=== PATIENT | female | born 1985 | race Caucasian/White ===

== ENCOUNTER 2017-12-09 22:59 | Emergency (ER) | payer SELFPAY ==
[2017-12-09] MEDS ORDERED: NORMAL SALINE 1000 ML 1,000 ML IV ONE (23:15)
[2017-12-09] MEDS ORDERED: ONDANSETRON HCL INJ/PF 4 MG/2 ML SDV IV ONE (23:15)
[2017-12-09] MEDS ORDERED: MORPHINE SULFATE 10 MG/ML INJ IV ONE (23:20)
--- NOTE | 2017-12-09 23:39 | ER Document Report ---
ED General - General TRAVEL OUTSIDE OF THE [place] IN LAST 30 DAYS: No <LARISA PANDA - Last Filed: 12/10/17 06:00> <NATALIA DE LA GARZA - Last Filed: 12/10/17 10:29> - General Chief Complaint: Nausea/Vomiting Stated Complaint: VOMITING Time Seen by Provider: 12/09/17 23:15 Notes: Patient is a 32-year-old female who is brought in by her friend due to intractable vomiting and syncope. Patient has stage IV cervical cancer. She moved to the area approximately week ago. She moved here from [place]. She does not have a primary care doctor in the area. Her friend brings a list of prescriptions as well as some generic discharge instructions from [facility]. Patient's friend says that she has basically just been given her vitamins because they do not have her photo ID to be able get her prescriptions filled. Patient apparently has an ex- back in [place]. She has no other family according to the friend. She has no parents. She does not have any siblings. She does have urostomy tubes. She also has colostomy. Patient's oncologist in [place] is Dr. Holcomb. Her BATTERY SERVICE TECHNICIAN physician is Dr. Araujo. They deny recent fevers. Patient says only place she has pain is in her knees. (LARISA PANDA) - Related Data Allergies/Adverse Reactions: No Known Allergies Allergy (Verified 12/09/17 23:50) Past Medical History - Social History Smoking Status: Unknown if Ever Smoked Frequency of alcohol use: None Drug Abuse: None Family History: Reviewed & Not Pertinent <LARISA PANDA - Last Filed: 12/10/17 06:00> Review of Systems <LARISA PANDA - Last Filed: 12/10/17 06:00> <NATALIA DE LA GARZA - Last Filed: 12/10/17 10:29> - Review of Systems Notes: My Normal Review Basic REVIEW OF SYSTEMS: CONSTITUTIONAL : Denies fever, chills, or sweats. Denies recent illness. EENT: Denies eye, ear, throat, or mouth pain or symptoms. Denies nasal or sinus congestion. RESPIRATORY: Denies cough, cold, or chest congestion. Denies shortness of breath, difficulty breathing, or wheezing. GASTROINTESTINAL: Denies abdominal pain. intractable vomiting GENITOURINARY: Denies difficulty urinating, painful urination, burning, frequency, or blood in urine. MUSCULOSKELETAL: Denies neck or back pain or joint pain or swelling. SKIN: Denies rash or skin lesions. NEUROLOGICAL: Syncopal episode. ALL OTHER SYSTEMS REVIEWED AND NEGATIVE. (LARISA PANDA) Physical Exam <LARISA PANDA - Last Filed: 12/10/17 06:00> <NATALIA DE LA GARZA - Last Filed: 12/10/17 10:29> - Vital signs Vitals: Resp Pulse Ox 39 H 81 L 12/09/17 23:13 12/09/17 23:13 - Notes Notes: General Appearance: Thin and cachectic appearing. Patient is somnolent. Vitals: reviewed, See vital signs table. Head: no swelling or tenderness to the head Eyes: PERRL, EOMI, Conjuctiva clear Mouth: Decrease moisture and its membranes. Throat: No tonsillar inflammation, No airway obstruction, No lymphadenopathy Neck: Supple, no neck tenderness, No thyromegaly Lungs: No wheezing, No rales, No rhonci, No accessory muscle use, good air exchange bilaterally. Heart: tachycardiac rate, Regular rythm, No murmur, no rub back: Urostomy tube sites do not have any surrounding redness or erythema or swelling. Bags from urostomy tubes have very small amount of very concentrated appearing urine. Abdomen: Normal BS, soft, No rigidity, No abdominal tenderness, also back left lower quadrant. There is of normal output. No gross blood in colostomy bag. Extremities: strength 5/5 in all extremities, good pulses in all extremities, no swelling or tenderness in the extremities, no edema. Skin: warm, dry, appropriate color, no rash Neuro: speech clear, oriented x 2, normal affect, very weak appearing. global weakness without focal deficit (LARISA PANDA) Course - Laboratory Result Diagrams: 12/09/17 23:26 12/10/17 04:53 <LARISA PANDA - Last Filed: 12/10/17 06:00> - Laboratory Result Diagrams: 12/09/17 23:26 12/10/17 04:53 <NATALIA DE LA GARZA - Last Filed: 12/10/17 10:29> - Re-evaluation Re-evalutation: 03/22/18 23:37 She is hypotensive with systolic blood pressure in the 50s. She is very ill- appearing. After place a central line. We only have one small peripheral IV. They are moving to the trauma bay second place central line and start resuscitative treatment. IV fluids are running through the small IV that we have now. Her history is difficult to fully obtain being that the only medical records that I have for her is a sheet that has her discharge medications and also generic discharge instructions actually did not have any diagnosis on it. I have tried to call the phone number for [facility] to try to get more information. I called the [phone]; however, it gives me a generic message followed by a single ring followed by a dial tone. I have tried this #3 times a day continues to give me the same pattern every time without allow me to speak with anybody. 12/10/17 00:01 She has central veins in both the femoral and internal jugular area are so flat that there almost impossible seed even on ultrasound. I was able to manage to get a 22-gauge IV in her right external jugular. She also has a small 24-gauge in her hand. Having warm IV fluids go through both of these peripheral IVs. We will try to give her some IV fluids so that we are able to see her central veins and then hopefully we will place a central line at that time. IV fluids are running well through these peripheral IVs. 12/10/17 00:19 I finally got touch with [facility]. I spoke with an pilot control operator who told me that medical records disclosed that there is no way they can give me any information on the patient until morning time when those people arrived. 12/10/17 00:23 Patient is feeling improved and her blood pressure is now 96/48. Clinically she looks better. Heart rate still elevated at 138. I will try to get in touch with her oncologist, Dr. Holcomb, and her oncologist Dr. Araujo. 12/10/17 00:29 I was able to get in touch with Dr. Hlocomb's answering service. They connect me with Dr. Gallego. Dr. Gallego says he will look up the patient's information give me a call back. 12/10/17 00:[address] Gallego. He says the patient was diagnosed in October of last year with stage III cervical cancer. She underwent radiation and chemotherapy from November through December. She then missed several of her appointments and came back in April. Since April they have not seen her at their office. 12/10/17 03:[address] Baird, Hospitalist at [facility], who requests I speak with their cook house laborer because of the patient's severe dehydration and metabolic acidosis. 12/10/17 04:38 She did have a very brief episode of hypotension after the NG tube was placed and she had over a liter of brown material suctioned out. This very brief period of hypotension as I resolved the patient's blood pressure is back to 98/ 67. Heart rate has remained the same in the 140s. Clinically the patient continues to look and feel improved. The intensivists said that the patient did not meet cook house laborer criteria because the patient does not require pressors or intubation. Patient still can go to the intensive care unit but was to be expected accepted by the hospitalist. I did speak with Dr. Mares who agrees to accept the patient. She does request that we do get a lactic acid as well as an arterial blood gas as well as repeat chemistry panel. I am awaiting the results of her chest x -ray as well. Patient will be closely monitored until transferred. 12/10/17 04:39 12/10/17 05:15 Patient's friend and roll builder is Kathie. Her phone number is [phone]. ( LARISA PANDA) 12/10/17 06:00 Sign-out from Dr. Panda. 32 yo with extensive cervical cancer and now bowel obstruction. She is accepted for transfer to [facility]. Patient continues to have pain and will try multiple different modalities to help treat her pain due to her hypotension. Fentanyl 50 mcg does not change her pain, ketamine has helped her pain and started a low-dose pain dose drip. Will add Haldol to help with her nausea and pain. Her MAPs are reamining above 65. 12/10/17 09:19 Pt's BP continued to drop to 60/[address] Panda looked with US and her IJs and femoral veins have all collapsed. Relooked with ultrasound and her central veins are still collapsed. Central line would be very difficult to obtain. Patient consented for IO so pressors could be given. 12/10/17 10:35 Norepinephrine drip at 10 with MAP>65. Air transport in ED, patient reassessed. She is in critical condition and explained to patient the severity of her disease/condition. (NATALIA DE LA GARZA) - Vital Signs Vital signs: Temp Pulse Resp BP Pulse Ox 100.9 F H 155 H 39 H 79/56 L 99 12/10/17 09:01 12/10/17 06:26 12/10/17 09:01 12/10/17 09:00 12/10/17 09:01 - Laboratory Laboratory results interpreted by me: 12/09/17 12/09/17 12/10/17 23:26 23:26 00:22 WBC 29.5 H RBC 3.49 L Hgb 10.1 L Hct 31.0 L RDW 16.2 H Plt Count 736 H Seg Neuts % (Manual) 90 H Lymphocytes % (Manual) 6 L Abs Neuts (Manual) 26.6 H Carbonic Acid ABG pH ABG pCO2 ABG pO2 ABG HCO3 ABG Total CO2 ABG O2 Saturation Sodium 125.8 L Chloride 87 L Carbon Dioxide 6 L* Anion Gap 33 H BUN 62 H Creatinine 5.45 H Est GFR ( Amer) 11 L Est GFR (Non-Af Amer) 9 L Glucose 172 H Calcium 7.6 L Phosphorus 7.2 H Direct Bilirubin 0.5 H AST 12 L Alkaline Phosphatase 156 H Total Protein Albumin Urine Protein >=500 H Urine Ketones TRACE H Urine Blood SMALL H Ur Leukocyte Esterase LARGE H 12/10/17 12/10/17 04:53 04:53 WBC RBC Hgb Hct RDW Plt Count Seg Neuts % (Manual) Lymphocytes % (Manual) Abs Neuts (Manual) Carbonic Acid 0.44 L ABG pH 7.33 L ABG pCO2 14.5 L* ABG pO2 145.6 H ABG HCO3 7.5 L ABG Total CO2 7.9 L ABG O2 Saturation 98.8 H Sodium 127.6 L Chloride Carbon Dioxide 7 L* Anion Gap 23 H BUN 59 H Creatinine 4.67 H Est GFR ( Amer) 13 L Est GFR (Non-Af Amer) 11 L Glucose Calcium 6.6 L* Phosphorus Direct Bilirubin AST 12 L Alkaline Phosphatase Total Protein 5.6 L Albumin 3.0 L Urine Protein Urine Ketones Urine Blood Ur Leukocyte Esterase - EKG Interpretation by Me Additional EKG results interpreted by me: 12/10/17 00:11 EKG is reviewed and interpreted by me. EKG shows sinus tachycardia with a rate of [address] segment elevation or depression. There is a lot of baseline artifact making it difficult to interpret if there is any T-wave inversion. MT interval, QRS duration, QTc intervals are within normal range. No old EKG available for comparison. (LARISA PANDA) Procedures - Additional Procedures IO insertion Time performed: 09:15 Additional Procedures: IO insertion <NATALIA DE LA GARZA - Last Filed: 12/10/17 10:29> - Additional Procedures IO insertion Notes: IO inserted into left proximal tibia (NATALIA DE LA GARZA) Critical Care Note - Critical Care Note Total time excluding time spent on procedures (mins): 65 <LARISA PANDA - Last Filed: 12/10/17 06:00> - Critical Care Note Total time excluding time spent on procedures (mins): 65 <NATALIA DE LA GARZA - Last Filed: 12/10/17 10:29> - Critical Care Note Comments: Critical care time for this patient not including time spent on procedures approximately 65 minutes due to frequent re-evaluations, management of hypertension, management of severe acidosis, discussions with physician at transferring facility. (LARISA PANDA) Critical care time for this patient not including time spent on procedures approximately 55 minutes due to frequent re-evaluations, management of hypotension/septic shock and management of severe acidosis. (NATALIA DE LA GARZA) Discharge <LARISA PANDA - Last Filed: 12/10/17 06:00> <NATALIA DE LA GARZA - Last Filed: 12/10/17 10:29> - Discharge Clinical Impression: Small bowel obstruction, Dehydration, Metabolic acidosis, Septic shock UTI (urinary tract infection) Qualifiers: Urinary tract infection type: site unspecified Hematuria presence: without hematuria Qualified Code(s): N39.0 - Urinary tract infection, site not specified Hypothermia Qualifiers: Encounter type: initial encounter Qualified Code(s): T68.XXXA - Hypothermia, initial encounter Vomiting Qualifiers: Vomiting type: unspecified Vomiting Intractability: intractable Nausea presence : with nausea Qualified Code(s): R11.2 - Nausea with vomiting, unspecified Cervical cancer Qualifiers: Malignant neoplasm of cervix location: unspecified location Qualified Code(s): C53.9 - Malignant neoplasm of cervix uteri, unspecified Acute renal failure Qualifiers: Acute renal failure type: unspecified Qualified Code(s): N17.9 - Acute kidney failure, unspecified Condition: Critical [facility]
[2017-12-09 23:47] LABS: HEMOGLOBIN 10.1 g/dL (12.0-15.5); MEAN CORPUSCULAR HEMOGLOBIN 28.9 pg (27.0-33.4); MEAN CORPUSCULAR HGB CONC 32.5 g/dL (32.0-36.0); MEAN CORPUSCULAR VOLUME 89 fl (80-97); PLATELET COUNT 736 10^3/uL (150-450); RED BLOOD COUNT 3.49 10^6/uL (3.72-5.28); RED CELL DISTRIBUTION WIDTH 16.2 % (11.5-14.0); WHITE BLOOD COUNT 29.5 10^3/uL (4.0-10.5)
[2017-12-10 00:01] LABS: ALANINE AMINOTRANSFERASE 16 U/L (9-52); ALBUMIN 4.1 g/dL (3.5-5.0); ALKALINE PHOSPHATASE 156 U/L (38-126); ASPARTATE AMINO TRANSFERASE 12 U/L (14-36); BILIRUBIN,DIRECT 0.5 mg/dL (0.0-0.4); BILIRUBIN,TOTAL 0.7 mg/dL (0.2-1.3); BLOOD UREA NITROGEN 62 mg/dL (7-20); CALCIUM 7.6 mg/dL (8.4-10.2); GLUCOSE 172 mg/dL (75-110); PHOSPHORUS 7.2 mg/dL (2.5-4.5); POTASSIUM 3.6 mmol/L (3.6-5.0); TOTAL PROTEIN 7.1 g/dL (6.3-8.2)
[2017-12-10 00:05] LABS: CHLORIDE 87 mmol/L (98-107); SODIUM 125.8 mmol/L (137-145)
[2017-12-10 00:14] LABS: CARBON DIOXIDE 6 mmol/L (22-30)
[2017-12-10 00:16] LABS: ANION GAP 33 (5-19)
[2017-12-10 00:27] LABS: ABSOLUTE LYMPHOCYTES# (MANUAL) 1.8 10^3/uL (0.5-4.7); ABSOLUTE MONOCYTES # (MANUAL) 1.2 10^3/uL (0.1-1.4); ABSOLUTE NEUTROPHILS# (MANUAL) 26.6 10^3/uL (1.7-8.2); BASOPHILS % (MANUAL) 0 % (0-2); EOSINOPHILS % (MANUAL) 0 % (0-6); LYMPHOCYTES % (MANUAL) 6 % (13-45); MONOCYTES % (MANUAL) 4 % (3-13); SEGMENTED NEUTROPHILS % (MAN) 90 % (42-78); TOTAL CELLS COUNTED 100
[2017-12-10 00:31] LABS: ANISOCYTOSIS 1+; HELMET CELLS SLIGHT; POIKILOCYTOSIS SLIGHT; SCHISTOCYTES 1+; TEAR DROP CELLS SLIGHT; TOXIC GRANULATION 2+; TOXIC VACUOLATION PRESENT
[2017-12-10 00:32] LABS: PLATELET CLUMPS PRESENT; PLATELET COMMENT INCREASED
[2017-12-10] MEDS ORDERED: FENTANYL CITRATE INJ/PF 100 MCG/2 ML AMPUL IV ONE ×6 (00:34→07:32)
[2017-12-10] MEDS ORDERED: NORMAL SALINE 1000 ML 1,000 ML IV ONE ×2 (00:34→09:17)
[2017-12-10 00:43] LABS: APPEARANCE,URINE TURBID; BILIRUBIN,URINE NEGATIVE (NEGATIVE); COLOR,URINE YELLOW; GLUCOSE, URINE NEGATIVE (NEGATIVE); KETONES,URINE TRACE mg/dL (NEGATIVE); LEUKOCYTE ESTERASE,URINE LARGE (NEGATIVE); NITRITE,URINE NEGATIVE (NEGATIVE); PROTEIN,URINE >=500 mg/dL (NEGATIVE); URINE SPECIFIC GRAVITY 1.015; UROBILINOGEN,URINE NEGATIVE mg/dL (<2.0)
--- NOTE | 2017-12-10 01:57 | RADIOLOGY REPORT (SQ) ---
EXAM DESCRIPTION: CT ABDOMEN AND PELVIS WITHOUT CONTRAST CLINICAL HISTORY: vomiting, urostomy tubes, history of cervical canc COMPARISON: None Available. TECHNIQUE: CT of the abdomen and pelvis without IV contrast. Evaluation of the solid organs and vasculature is suboptimal due to lack of IV contrast. DLP: 260.96 mGy-cm FINDINGS: Lung Bases: The visualized lung bases are clear. Bones: Lytic lesions involving the anterior L2 and L3 vertebral bodies at level of the conglomerate retroperitoneal soft tissue mass suggesting invasion. Abdomen: Liver: The liver has normal size and density. Gallbladder: No calcified gallstones. Spleen, Pancreas, and Adrenal Glands: The spleen, pancreas, and adrenal glands are unremarkable. Kidneys: Bilateral nephrostomy tubes. Vasculature: Conglomerate soft tissue mass in the expected location of the aorta and IVC likely representing metastatic lymphadenopathy. This region measures at least 9.1 x 5.0 cm Stomach: The stomach and duodenum have normal course. Other: No free intraperitoneal air. Complex fluid collection in the pelvis with likely transvaginal drain. Residual fluid collection is complex and measures 4.3 x 2.2 cm There is also a right transgluteal abscess drain in place. Mild residual fluid collection measuring at least 3.0 x 1.9 cm. Pelvis: Bladder: Urinary bladder is decompressed. Bowel: Dilated loops of small bowel with decompressed loops of bowel distally. Left-sided ileostomy. The colon is decompressed as is the distal small bowel. Transition point not definitely identified however is likely in the mid abdomen. Appendix: The appendix is not identified. Pelvis: Prior hysterectomy. Drainage tubes as detailed above. IMPRESSION: 1. Findings compatible with small bowel obstruction with transition point likely in the mid lower abdomen. 2. 2 pelvic drainage catheters with small residual fluid collections as detailed above. 3. Conglomerate soft tissue mass in the retroperitoneum compatible with metastatic lymphadenopathy measuring at least 9.1 cm in greatest dimension. 4. Nephrostomy tube in appropriate position. This exam was performed according to our departmental dose-optimization program, which includes automated exposure control, adjustment of the mA and/or kV according to patient size and/or use of iterative reconstruction technique.
[2017-12-10] MEDS ORDERED: RINGERS SOLUTION,LACTATED 1,000 ML IV ONE (02:58)
[2017-12-10] MEDS ORDERED: LIDOCAINE 2% JELLY 30 ML TUBE TOP ONE (02:59)
[2017-12-10] MEDS ORDERED: LIDOCAINE 2% JELLY 5 ML TUBE ONE (03:17)
[2017-12-10] MEDS ORDERED: CEFTRIAXONE INJ 1000 MG VIAL IV ONE (03:49)
--- NOTE | 2017-12-10 04:32 | RADIOLOGY REPORT (SQ) ---
EXAM DESCRIPTION: KUB/ABDOMEN (SINGLE VIEW) CLINICAL HISTORY: NG TUBE PLACEMENT COMPARISON: None. FINDINGS: Single view of the abdomen. NG tube with tip and side-port overlying the expected region of the stomach. Visualized lung bases are clear. No free intraperitoneal air. Dilated loops of small bowel again identified. Bilateral nephrostomy tubes visualized. No acute osseous abnormalities. No definite abnormal calcifications. IMPRESSION: 1. NG tube with tip in the stomach.
[2017-12-10] MEDS ORDERED: SODIUM BICARBONATE 8.4% INJ 50 MEQ/50 ML DISP.SYRIN IV ONE (04:35)
--- NOTE | 2017-12-10 04:58 | RADIOLOGY REPORT (SQ) ---
EXAM DESCRIPTION: CHEST SINGLE VIEW CLINICAL HISTORY: hypotension COMPARISON: None. FINDINGS: Single frontal view of the chest. The cardiomediastinal silhouette has normal size and contour. No consolidation, pneumothorax, or pleural effusion. No displaced rib fractures identified. NG tube with tip and side-port overlying the expected region of the stomach. Upper abdominal soft tissues are unremarkable. IMPRESSION: 1. No acute pulmonary process identified. NG tube with tip in the stomach.
[2017-12-10 05:09] LABS: ARTERIAL BLOOD BASE EXCESS -16.7 mmol/L; ARTERIAL BLOOD H2CO3 0.44 mmol/L (1.05-1.35); ARTERIAL BLOOD HCO3 7.5 mmol/L (20-26); ARTERIAL BLOOD O2 SATURATION 98.8 % (94-98); ARTERIAL BLOOD PH 7.33 (7.35-7.45); ARTERIAL BLOOD PO2 145.6 mmHg (80-100); ARTERIAL BLOOD TOTAL CO2 7.9 mmol/L (21-25)
[2017-12-10 05:10] LABS: ARTERIAL BLOOD FIO2 ROOM AIR
[2017-12-10 05:11] LABS: ARTERIAL BLOOD PCO2 14.5 mmHg (35-45)
[2017-12-10 05:29] LABS: ALANINE AMINOTRANSFERASE 20 U/L (9-52); ALKALINE PHOSPHATASE 109 U/L (38-126); ASPARTATE AMINO TRANSFERASE 12 U/L (14-36); BILIRUBIN,DIRECT 0.3 mg/dL (0.0-0.4); BILIRUBIN,TOTAL 0.3 mg/dL (0.2-1.3); BLOOD UREA NITROGEN 59 mg/dL (7-20); CHLORIDE 98 mmol/L (98-107); GLUCOSE 104 mg/dL (75-110); POTASSIUM 3.7 mmol/L (3.6-5.0); TOTAL PROTEIN 5.6 g/dL (6.3-8.2)
[2017-12-10 05:34] LABS: SODIUM 127.6 mmol/L (137-145)
[2017-12-10 05:40] LABS: ANION GAP 23 (5-19)
[2017-12-10 05:41] LABS: CALCIUM 6.6 mg/dL (8.4-10.2); CARBON DIOXIDE 7 mmol/L (22-30)
[2017-12-10] MEDS ORDERED: ACETAMINOPHEN 325 MG TABLET PO ONE (05:46)
[2017-12-10] MEDS ORDERED: ACETAMINOPHEN 325 MG SUPP.RECT PR ONE (05:59)
[2017-12-10] MEDS ORDERED: CALCIUM GLUCONATE 1000 MG/10 ML INJ IV ONE (06:00)
[2017-12-10] MEDS ORDERED: DEXTROSE 5%-1/2 NORMAL SALINE 1,000 ML IV ONE (06:24)
[2017-12-10] MEDS ORDERED: KETAMINE HCL INJ 500 MG/10 ML VIAL IV ONE ×2 (07:32→07:36)
[2017-12-10] MEDS ORDERED: KETAMINE HCL INJ 500 MG/10 ML VIAL IV PRN (07:53)
[2017-12-10] MEDS ORDERED: HALOPERIDOL LACTATE INJ 5 MG/1 ML VIAL IV ONE (08:48)
[2017-12-10 09:13] VITALS: BP 79/56
[2017-12-10] MEDS ORDERED: DEXTROSE 5%-WATER 250 ML with NOREPINEPHRINE BITARTRATE 4 MG IV PRN ×2 (09:17)
[2017-12-10] MEDS ORDERED: LIDOCAINE 2% INJ-PF (100 MG/5 ML) SYRINGE IV ONE (09:18)
[2017-12-10] MEDS ORDERED: NOREPINEPHRINE BITARTRATE INJ/PF 4 MG/4 ML SDV IV ONE (09:55)
[2017-12-10 10:38] LABS: APPEARANCE,URINE TURBID; BILIRUBIN,URINE NEGATIVE (NEGATIVE); COLOR,URINE YELLOW; GLUCOSE, URINE NEGATIVE (NEGATIVE); KETONES,URINE NEGATIVE (NEGATIVE); LEUKOCYTE ESTERASE,URINE SMALL (NEGATIVE); NITRITE,URINE NEGATIVE (NEGATIVE); PROTEIN,URINE >=500 mg/dL (NEGATIVE); URINE SPECIFIC GRAVITY 1.022; UROBILINOGEN,URINE NEGATIVE mg/dL (<2.0)
[2017-12-10] MEDS ORDERED: VANCOMYCIN HCL INJ 500 MG VIAL IV ONE (10:54)
[2017-12-10] MEDS ORDERED: CEFEPIME 1 GM/D5W RTU 1 GM/50 ML RTUPB IV ONE (10:56)
[2017-12-10] MEDS ORDERED: METRONIDAZOLE 500 MG/NS RTU 100 ML IV ONE (10:56)
--- NOTE | 2017-12-10 22:19 | EKG REPORT ---
SEVERITY:- ABNORMAL ECG - SINUS TACHYCARDIA NONSPECIFIC T ABNORMALITIES, INFERIOR LEADS : Confirmed by: Khari Quiroz 10-Dec-2017 22:18:28
== END 2017-12-10 11:05 | disposition short-term general hospital (02) ==
LOC: ER 22:59
PROC: 05HP33Z Insertion of Infusion Device into Right External Jugular Vein, Percutaneous Approach (ICD-10-PCS; principal; 2017-12-09)
DX: E86.0 Dehydration (principal); E87.2 Acidosis; A41.9 Sepsis, unspecified organism; R65.21 Severe sepsis with septic shock; K56.609 Unspecified intestinal obstruction, unspecified as to partial versus complete obstruction; N39.0 Urinary tract infection, site not specified; R11.2 Nausea with vomiting, unspecified; C53.9 Malignant neoplasm of cervix uteri, unspecified; N17.9 Acute kidney failure, unspecified; Z93.3 Colostomy status; Z93.6 Other artificial openings of urinary tract status
CPT/HCPCS: 93005; 96376; 99291; 96361; 96375; 96365; 96366; 36415; 96368; 87040; 87086; 82803; 83605; 83690; 83735; 84100; 85025; 87088; 80053; 81001; 87186; 71045; 74018; 74176; 93010; 36556; C1751; J3490 ×3; J0610; J3010; J1630; J2001; J0696; J2405; J7030; J7120